=== PATIENT | female | born 1985 | race Caucasian/White ===

== ENCOUNTER 2017-11-11 11:34 | Emergency (ER) | payer BC ==
[2017-11-11 11:42] VITALS: BMI 22.6
[2017-11-11 11:43] VITALS: RESP 16; TEMP 98
[2017-11-11] MEDS ORDERED: Sodium Chloride 0.9% 1,000 ML IV STA (12:25)
[2017-11-11] MEDS ORDERED: cefTRIAXone IV 1 gm in Dextros 50 ML IVPB ONE (12:32)
[2017-11-11] MEDS ORDERED: cefTRIAXone IV 1 gm in Dextros 50 ML IVPB STA (12:55)
[2017-11-11 13:15] LABS: ALB/GLOB RATIO 1.4 (1.0-2.1); ALKALINE PHOSPHATASE 84 U/L (38-126); ALT/SGPT 30 U/L (9-52); AST/SGOT 28 U/L (14-36); BILIRUBIN,TOTAL 0.5 mg/dl (0.2-1.3); BLOOD UREA NITROGEN 13 mg/dl (7-17); CALCIUM 9.3 mg/dL (8.4-10.2); CARBON DIOXIDE 24 mmol/L (22-30); CHLORIDE 100 mmol/L (98-107); GFR AFRICAN-AMERICAN > 60; GLUCOSE,RANDOM 94 mg/dL (65-105); POTASSIUM 3.9 MMOL/L (3.6-5.0); SODIUM 135 mmol/l (132-148); TOTAL PROTEIN 7.6 G/DL (6.3-8.2)
[2017-11-11 13:24] LABS: BASO # 0.1 K/uL (0.0-0.2); BASO % 0.4 % (0.0-2.0); EOS # 0.1 K/uL (0.0-0.7); EOS % 0.4 % (0.0-4.0); HEMATOCRIT 39.6 % (34.0-47.0); LYMPH % 14.3 % (20.0-40.0); MEAN CELL VOLUME 90.2 fl (81.0-99.0); MEAN CORPUSCULAR HEMOGLOBIN 29.5 pg (27.0-31.0); MEAN CORPUSCULAR HGB CONC 32.8 g/dL (33.0-37.0); MEAN PLATELET VOLUME 6.9 fl (7.2-11.7); MONO # 1.1 K/uL (0.0-0.8); NEUT # 10.8 K/uL (1.8-7.0); NEUT % 76.9 % (50.0-75.0); RED CELL DISTRIBUTION WIDTH 12.8 % (11.5-14.5); WHITE BLOOD COUNT 14.1 K/uL (4.8-10.8)
--- NOTE | 2017-11-11 13:44 | ED PDOC ---
HPI: Female Pain Time Seen by Provider: 11/11/17 11:50 Chief Complaint (Nursing): Female Genitourinary Chief Complaint (Provider): Suprapubic pain, mild dysuria History Per: Patient History/Exam Limitations: no limitations Onset/Duration Of Symptoms: Days Current Symptoms Are (Timing): Still Present Severity: Moderate Pain Scale Rating Of: 6 Quality Of Discomfort: Cramping, Burning, Pressure Associated Symptoms: Loss Of Appetite. denies: Fever, Chills, Nausea, Vomiting Alleviating Factors: None Additional Complaint(s): Pt states she was treated with bactrim for UTI and the pain went away but it return today. Pt states she was given Rx by PMD for cipro 250mg PO bid x 3 days but did not fill it yet. No fever/chills. No back pain. Past Medical History Reviewed: Historical Data, Nursing Documentation, Vital Signs Vital Signs: Last Vital Signs Temp 98.0 F 11/11/17 11:41 Pulse 75 11/11/17 11:41 Resp 16 11/11/17 11:41 BP 133/75 11/11/17 11:41 Pulse Ox 100 11/11/17 11:41 - Medical History PMH: No Chronic Diseases - Surgical History Surgical History: Appendectomy - Family History Family History: States: No Known Family Hx - Living Arrangements Living Arrangements: With Family - Social History Current smoker - smoking cessation education provided: No - Home Medications Home Medications: Ambulatory Orders Medication Instructions Recorded Ciprofloxacin [Cipro] 500 mg PO BID #10 tab 11/11/17 - Allergies Allergies/Adverse Reactions: Allergies Allergy/AdvReac Type Severity Reaction Status Date / Time No Known Allergies Allergy Verified 11/11/17 11:47 Review of Systems ROS Statement: Except As Marked, All Systems Reviewed And Found Negative Constitutional: Negative for: Fever, Chills Gastrointestinal: Positive for: Abdominal Pain. Negative for: Nausea ( Cedreased appetite today), Vomiting, Diarrhea Genitourinary Female: Positive for: Pelvic Pain. Negative for: Vaginal Bleeding Physical Exam - Reviewed Nursing Documentation Reviewed: Yes Vital Signs Reviewed: Yes - Physical Exam Appears: Positive for: Well, Non-toxic, No Acute Distress Head Exam: Positive for: ATRAUMATIC, NORMAL INSPECTION, NORMOCEPHALIC Skin: Positive for: Normal Color, Warm, DRY Eye Exam: Positive for: Normal appearance ENT: Positive for: Normal ENT Inspection Neck: Positive for: Normal, Painless ROM Cardiovascular/Chest: Positive for: Regular Rate, Rhythm Respiratory: Positive for: CNT, Normal Breath Sounds Gastrointestinal/Abdominal: Positive for: Normal Exam, Bowel Sounds, Soft. Negative for: Tenderness Back: Positive for: Normal Inspection Extremity: Positive for: Normal ROM Neurologic/Psych: Positive for: Alert, Oriented - Laboratory Results Result Diagrams: 11/11/17 12:56 11/11/17 12:56 - ECG O2 Sat by Pulse Oximetry: 100 Medical Decision Making Medical Decision Makin - Pt asks to eat. Pt reports feeling much better after toradol. Discussed taking probiotics. Disposition - Clinical Impression Clinical Impression: Urinary tract infection - Patient ED Disposition Is Patient to be Admitted: No Counseled Patient/Family Regarding: Diagnosis, Need For Followup - Disposition Disposition: Routine/Home Disposition Time: 14:18 Condition: GOOD Additional Instructions: Please begin probiotics. Prescriptions: Ciprofloxacin [Cipro] 500 mg PO BID #10 tab Instructions: Urinary Tract Infection in Women (ED) Forms: [facility] [employer] (French)
[2017-11-11 15:10] VITALS: BP 125/70; PULSE 70; O2SAT 98
== END 2017-11-11 14:45 | disposition home or self-care (01) ==
LOC: H.ER 11:34
DX: N39.0 Urinary tract infection, site not specified (principal)
CPT/HCPCS: 80053; 81025; 85025; 87040; 87086; 96360; 96365; 96374; 96375; 99283; J0696; J1885; J7040